=== PATIENT | female | born 1955 | race Caucasian/White ===

== ENCOUNTER 2021-02-25 11:41 | Day surgery (SDC) | payer MEDICARE, BC, OTHER ==
[2021-02-24 08:42] VITALS: BMI 32.3
[2021-02-25] MEDS ORDERED: Levofloxacin 500 mg/D5W 100 ml Premix Bag ONE (12:14)
[2021-02-25] MEDS ORDERED: Fentanyl 100 MCG/2 ML VIAL ONE ×3 (13:12→15:24)
[2021-02-25] MEDS ORDERED: Lidocaine 1% PF 5 ML VIAL ONE (14:23)
[2021-02-25] MEDS ORDERED: Ondansetron PF 4 MG/2 ML Vial ONE (14:23)
[2021-02-25] MEDS ORDERED: Dexamethasone 20 MG/5 ML VIAL ONE (14:23)
[2021-02-25] MEDS ORDERED: Ketorolac Tromethamine 30 MG/ML VIAL ONE (14:23)
[2021-02-25] MEDS ORDERED: PROPOFOL 200 MG/20 ML VIAL ONE (14:23)
[2021-02-25] MEDS ORDERED: Phenazopyridine HCl 100 MG TAB ONE (15:24)
[2021-02-25] MEDS ORDERED: Morphine 4 MG/ML VIAL ONE (15:47)
[2021-02-25] MEDS ORDERED: HYDROcodone/Acetaminophen 5/325 mg Tablet ONE (16:49)
== END 2021-02-25 17:22 | disposition home or self-care (01) ==
LOC: SDC 11:41
PROVIDERS: ATTEND Urology
PROC: 0T778DZ Dilation of Left Ureter with Intraluminal Device, Via Natural or Artificial Opening Endoscopic (ICD-10-PCS; principal; 2021-02-25)
DX: N20.1 Calculus of ureter (principal); I10 Essential (primary) hypertension; E78.5 Hyperlipidemia, unspecified; M19.90 Unspecified osteoarthritis, unspecified site; K21.9 Gastro-esophageal reflux disease without esophagitis; I49.9 Cardiac arrhythmia, unspecified; Z79.2 Long term (current) use of antibiotics; Z79.899 Other long term (current) drug therapy; Z88.5 Allergy status to narcotic agent; Z88.8 Allergy status to other drugs, medicaments and biological substances; Z88.6 Allergy status to analgesic agent
CPT/HCPCS: 52332; 74420; 93005; C2617; 93010; J1100; J1885; J1956; J2270; J2405; J2704; J3010

== ENCOUNTER 2021-10-04 13:53 | Outpatient (CLI) | payer MEDICARE, BC, OTHER | END 2021-10-04 13:54 | disposition home or self-care (01) | LOC: SCSRAD 13:53 | PROVIDERS: ATTEND Urology | DX: N20.1 Calculus of ureter (principal) | CPT/HCPCS: 74018 ==